=== PATIENT | female | born 1950 | race Caucasian/White ===

== ENCOUNTER → 2020-01-08 | Outpatient (CLI) | payer MEDICARE, OTHER ==
[~2020-01-08] MED LIST: ASPIRIN325 PO; COLACE100 MG PO; COZAAR 25 MG TA25 M1 PO; COZAAR 50 MG TA50 M2 PO; GABAPENTIN 100100 MG PO; KEFLEX500 MG PO; LASIX 40 MG TAB40 M2 PO; LEVOTHYROXINE0.05 MG PO; LOSARTAN-HCTZ1 EAC1 PO; MOBIC15 MG PO; NORCO 5-325 TA1 EACH PO; OXYCODONE HCL 55 MG PO; VERAPAMIL E.R240 M1 PO; XARELTO10 MG PO
--- NOTE | 2020-01-08 15:35 | 2DMMODE ---
[place] [address] 2 D/M-MODE ECHOCARDIOGRAM Name: ZAINABWILLIAM Room: [facility]#: [id number] Admission: 01/08/20 Attend Phys: Issac Archer, Discharge: Date of : 48 Date of Service: 01/08/20 1534 Report #: [id number] THIS REPORT FOR: cc: David Dash Steve T. DO Liston, Michael J. MD [facility] ~ APPROVED REPORT Study performed: 01/08/2020 14:07:54 EXAM: Comprehensive 2D, Doppler, and color-flow Echocardiogram Patient Location: Out-Patient Status: routine BSA: 2.35 HR: 71 bpm Rhythm: NSR Other Information Study Quality: Good Indications Pre-Op Murmur 2D Dimensions IVSd: 11.02 (7-11mm) LVOT Diam: 21.88 (18-24mm) LVDd: 52.17 mm PWd: 11.02 (7-11mm) Ascending Ao: 46.63 (22-36mm) LVDs: 25.35 (25-40mm) Aortic Root: 34.81 mm Volumes Left Atrial Volume (Systole) LA ESV Index: 22.30 mL/m2 Aortic Valve AoV Peak Adryan.: 2.31 m/s AO Peak Gr.: 21.34 mmHg LVOT Max P.20 mmHg AO Mean Gr.: 12.72 mmHg LVOT Mean P.54 mmHg LVOT Max V: 0.89 m/s AO V2 VTI: 39.36 cm LVOT Mean V: 0.56 m/s WILL (VTI): 1.71 cm2 LVOT V1 VTI: 17.89 [place] [address] 2 D/M-MODE ECHOCARDIOGRAM Name: WILLIAM LAMB Room: [facility]#: [id number] Admission: 01/08/20 Attend Phys: Issac Archer, Discharge: Date of : 48 Date of Service: 01/08/20 1534 Report #: [id number] Mitral Valve E/A Ratio: 0.73 MV Decel. Time: 181.81 ms MV E Max Adryan.: 0.44 m/s MV PHT: 52.72 ms MVA (PHT): 4.18 cm2 TDI E/Lateral E': 4.00 E/Medial E': 6.29 Medial E' Adryan.: 0.07 m/s Lateral E' Adryan.: 0.11 m/s Pulmonary Valve PV Peak Adryan.: 1.03 m/s PV Peak Gr.: 4.28 mmHg Tricuspid Valve RAP Estimate: 5.00 mmHg TR Peak Gr.: 29.45 mmHg RVSP: 34.00 mmHg PA Pressure: 34.00 mmHg TV Max P.00 mmHg Left Ventricle The left ventricle is normal size. There is normal LV segmental wall motion. There is normal left ventricular wall thickness. Left ventricular systolic function is normal. LVEF is 65-70%. Grade I - abnormal relaxation pattern. Right Ventricle The right ventricle is normal size. The right ventricular systolic function is normal. Atria The left atrium size is normal. The right atrium size is normal. Aortic Valve Mild aortic valve sclerosis. No aortic regurgitation is present. Mild aortic stenosis. Mitral Valve The mitral valve is normal in structure. Trace mitral regurgitation. No evidence of mitral valve stenosis. Tricuspid Valve The tricuspid valve is normal in structure[place] [address] 2 D/M-MODE ECHOCARDIOGRAM Name: WILLIAM LAMB Room: [facility]#: [id number] Admission: 01/08/20 Attend Phys: Issac Archer, Discharge: Date of : 48 Date of Service: 01/08/20 1534 Report #: [id number] regurgitation. Mild pulmonary hypertension. Pulmonic Valve The pulmonary valve is normal in structure. There is no pulmonic valvular regurgitation. Great Vessels The aortic root is normal in size. IVC is normal in size and collapses >50% with inspiration. Pericardium There is no pericardial effusion. <Conclusion> The left ventricle is normal size. There is normal left ventricular wall thickness. Left ventricular systolic function is normal. LVEF is 65-70%. Grade I - abnormal relaxation pattern. Mild aortic valve sclerosis. Mild aortic stenosis. Trace mitral regurgitation. Trace tricuspid regurgitation. Mild pulmonary hypertension. IVC is normal in size and collapses >50% with inspiration. <ELECTRONICALLY SIGNED> By: Issac Archer MD, [facility] 01/08/20 1534 1534 1534 Issac Archer MD, FACC /INF
== END ==
LOC: M.CRD 13:54
PROVIDERS: ATTEND Internal Medicine Cardiovascular Disease
DX: Z01.810 Encounter for preprocedural cardiovascular examination (principal); I35.0 Nonrheumatic aortic (valve) stenosis; I27.20 Pulmonary hypertension, unspecified